=== PATIENT | male | born 1940 | race Caucasian/White ===

== ENCOUNTER 2021-06-25 13:44 | Day surgery (SDC) | payer OTHER, BC ==
--- NOTE | 2021-06-22 16:59 | RAD REPORT ---
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 Lungs: No evidence of edema or pneumonia. Pleural: No significant pleural effusions or pneumothorax. Cardiac: The heart size is within normal limits. Bones: No acute fractures. Other: IMPRESSION: No acute cardiopulmonary disease.
[2021-06-22 17:20] LABS: Protime INR 0.96
[2021-06-25] MEDS ORDERED: NA CHLORIDE 0.9% 500 ML ONE (14:23)
[2021-06-25 15:56] VITALS: TEMP 98.3
[2021-06-25] MEDS ORDERED: MIDAZOLAM HCL 2 MG/2 ML INJ ONE (16:38)
[2021-06-25] MEDS ORDERED: FENTANYL CITR 100 MCG/2 ML ONE (16:39)
[2021-06-25] MEDS ORDERED: VERAPAMIL HCL 10 MG/4 ML VIAL IV ONE (16:39)
[2021-06-25] MEDS ORDERED: HEPARIN 5000 UNIT/ML 1 ML VIAL ONE (16:40)
[2021-06-25] MEDS ORDERED: NITROGLYCERIN 100 MCG/ML SYR (for cath lab use only) IV ONE (16:40)
[2021-06-25] MEDS ORDERED: ATROPINE SULF 1 MG/10 ML SYR IV ONE (16:40)
[2021-06-25] MEDS ORDERED: HEPA 1000U/500MLS 2,000 UNIT/1,000 ML BAG IV ONE (16:41)
[2021-06-25] MEDS ORDERED: LIDOCAINE 1% 20 ML MDV ONE (16:43)
[2021-06-25] MEDS ORDERED: HYDRALAZINE HCL 20 MG/ML VIAL ONE (17:09)
[2021-06-25] MEDS ORDERED: CLOPIDOGREL 75 MG TABLET ONE (17:20)
[2021-06-25] MEDS ORDERED: ASPIRIN 325 MG TAB ONE (17:20)
[2021-06-25] MEDS ORDERED: METOPROLOL TARTRATE 5 MG/5 ML INJ IV ONE (17:30)
--- NOTE | 2021-06-25 19:43 | OP ---
Date of Procedure: 06/25/2021 Surgeon: MIGUEL VALENTINE Procedures Performed: 1.Selective coronary angiogram. 2.PCI of severe mid LAD stenosis using 3.5 x 16 mm Synergy drug-eluting stent. Access: Right radial artery 6-Stateless closed with TR band. Complications: None. Bleeding: Less than 10 mL. Description Of Procedure: After risks, benefits, and alternatives were explained, the patient agreed to the procedure and signed informed consent. The patient was brought into the cardiac catheterizat ion laboratory, prepped and draped in usual sterile fashion. Then, we accessed right radial artery u sellpoints pediatric micropuncture kit, placed a 6-Stateless Slender sheath, and then took a 5-Stateless [place] 4. 0 catheter into the aortic root, engaged the left main and right coronary artery and took standard vi ews. Intervention Details: We gave systemic heparin to assure ACT level above 250, loaded with 300 mg of Plavix and 325 mg aspirin. Then, I took a 6-Stateless XB3.5 left guide into the aortic root, engaged le ft main, took short Run-Through wire into the left main and then into the LAD placed the wire distall y. Then, we used a 3.5 x 12 mm Compliant balloon to pre-dilate the lesion. Subsequently, I placed a 3.5 x 16 mm Synergy drug-eluting stent with good expansion and 0% residual stenosis and LADY-3 flow at the end of procedure. I then removed the wire. Angiogram was satisfactory. I removed the cathet er and sheath, placed TR band with good hemostasis. Indication For Procedure: Unstable angina. Findings: 1.Left main; large and normal. 2.LAD; proximal to mid diffuse 40 to 50% stenosis, but with good flow. Then, the diagonal branch macias s an ostial 30% to 40% stenosis. In mid LAD, there were multiple focal lesions ranging between 30% a nd 40%. Then, diagonal 2 branch comes off with an ostium to proximal 60% to 70% stenosis. Mid LAD h as a focal 80% stenosis, status post successful PCI as above. The rest of the LAD looks normal. 3.Left circumflex; large and codominant, has proximal diffuse 20% to 30% and then mid RCA has patent large stent. No ISR. 4.RCA; large vessel and codominant. 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 Conclusion: 1.Severe mid LAD stenosis and status post successful PCI as above. 2.Moderate coronary artery disease elsewhere. Plan: Aspirin, Plavix, and high-dose statin and medical management. Follow up with me in my office in 2-3 weeks. SR/MODL Voice ID: [id number] Report ID: [id number]
[2021-06-25 20:08] VITALS: O2SAT 96
[2021-06-25 21:08] VITALS: BP 161/77
== END 2021-06-25 21:09 | disposition home or self-care (01) ==
LOC: CCL 13:44
PROVIDERS: ATTEND Internal Medicine
DX: I25.110 Atherosclerotic heart disease of native coronary artery with unstable angina pectoris (principal); I65.23 Occlusion and stenosis of bilateral carotid arteries; I10 Essential (primary) hypertension; E78.5 Hyperlipidemia, unspecified; E11.9 Type 2 diabetes mellitus without complications; Z95.5 Presence of coronary angioplasty implant and graft; Z20.822 Contact with and (suspected) exposure to COVID-19; Z82.49 Family history of ischemic heart disease and other diseases of the circulatory system
CPT/HCPCS: 36415; 85610; 82947; 85347; 85730; 71046; 93454; U0003; C1893; C1725; C9600; J0360; J1644 ×2; J2250; J3010; J7040

== ENCOUNTER 2021-07-16 06:53 | Day surgery (SDC) | payer OTHER, BC ==
[2021-07-13 16:14] LABS: Absolute Lymphocytes (CBC) 2.1 K/uL (0.7-4.9); Hematocrit 41.1 % (39.6-49.0); Lymphocytes % 28.7 % (15.3-44.8); RBC Red Blood Cell Count 4.19 M/uL (4.33-5.43)
[2021-07-13 16:22] LABS: Protime INR 0.95
[2021-07-13 16:29] LABS: Potassium 4.4 mmol/L (3.5-5.1)
[2021-07-16] MEDS ORDERED: MIDAZOLAM HCL 2 MG/2 ML INJ ONE ×2 (07:01→07:37)
[2021-07-16] MEDS ORDERED: FENTANYL CITR 100 MCG/2 ML ONE (07:01)
[2021-07-16] MEDS ORDERED: LIDOCAINE 1% 20 ML MDV ONE (07:01)
[2021-07-16] MEDS ORDERED: NA CHLORIDE 0.9% 500 ML ONE ×2 (07:02)
[2021-07-16] MEDS ORDERED: ATROPINE SULF 1 MG/10 ML SYR IV ONE (07:02)
[2021-07-16] MEDS ORDERED: HEPA 1000U/500MLS 1,000 UNIT/500 ML BAG IV ONE (07:04)
[2021-07-16 07:33] VITALS: TEMP 97.1
[2021-07-16] MEDS ORDERED: ACETAMINOPHEN 325 MG TABLET ONE (10:36)
[2021-07-16] MEDS ORDERED: cloNIDine HCL 0.1 MG TAB PO ONE (11:40)
[2021-07-16 14:58] VITALS: BP 154/63; O2SAT 97
--- NOTE | 2021-07-16 15:00 | OP ---
Date of Procedure: 07/16/2021 Surgeon: Oniel Gabriel MD Director Of Enrollment: Mr. Mosley. The patient will remain in the hospital for 6 hours at bedrest after holding pressure on the right gr oin. I will make arrangements for him to have a CD with him and I will send him to [facility] for carotid endarterectomy. Procedure: Bilateral selective carotid angiograms. Indication: Cerebrovascular disease and abnormal carotid Doppler. 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 Given Versed and fentanyl for sedation. A 6-Nauruan ruiz th introduced in the right common femoral artery successfully using the Seldinger technique and 10 cc Xylocaine. A JR4 catheter 6-Nauruan was used to cannulate selectively the right carotid and then the left carotid. Angiography showed 50% right ICA, 80% left ICA. He had a normal external carotid and normal common carotid bilaterally. The patient tolerated the procedure well. There were no complic ations. Blood Loss: 5 cc. Anesthesia: Total conscious sedation was 30 minutes. Postoperative Diagnosis: Severe cerebrovascular disease. Plan: For left carotid endarterectomy. BIBIANA/LISA Voice ID: [id number] Report ID: [id number]
== END 2021-07-16 14:05 | disposition home or self-care (01) ==
LOC: CCL 06:53
DX: I65.23 Occlusion and stenosis of bilateral carotid arteries (principal); I25.10 Atherosclerotic heart disease of native coronary artery without angina pectoris; I10 Essential (primary) hypertension; E78.5 Hyperlipidemia, unspecified; E11.9 Type 2 diabetes mellitus without complications; Z20.822 Contact with and (suspected) exposure to COVID-19
CPT/HCPCS: 93005; 85025; 80048; 36415; 85610; 82947; 85730; 36222; U0003; C1893; J2250; J3010; J7040 ×2; J1644

== ENCOUNTER 2021-09-24 07:45 | Day surgery (SDC) | payer OTHER, BC ==
[2021-09-19 11:49] LABS: Absolute Lymphocytes (CBC) 1.9 K/uL (0.7-4.9); Hematocrit 42.4 % (39.6-49.0); Lymphocytes % 28.4 % (15.3-44.8); MPV 8.7 fL (7.6-11.3); RBC Red Blood Cell Count 4.32 M/uL (4.33-5.43)
[2021-09-19 12:03] LABS: Potassium 4.3 mmol/L (3.5-5.1)
[2021-09-24] MEDS ORDERED: NA CHLORIDE 0.9% 1,000 ML ONE ×2 (08:05→10:26)
[2021-09-24] MEDS ORDERED: FENTANYL CITR 100 MCG/2 ML ONE (08:18)
[2021-09-24] MEDS ORDERED: propofoL 200 MG/20 ML VIAL IV ONE (08:18)
[2021-09-24] MEDS ORDERED: ROCURONIUM 50 MG/5 ML VIAL IV ONE (08:19)
[2021-09-24] MEDS ORDERED: LIDOCAINE 2% MPF 5 ML VIAL ONE (08:19)
[2021-09-24] MEDS ORDERED: ONDANSETRON 4 MG/2 ML VIAL ONE ×2 (08:20→11:11)
[2021-09-24] MEDS ORDERED: CEFAZOLIN SODIUM 1 GM/VIAL ONE (08:28)
[2021-09-24] MEDS ORDERED: HYDRALAZINE HCL 20 MG/ML VIAL IV ONE (08:36)
[2021-09-24] MEDS ORDERED: HYDRALAZINE HCL 20 MG/ML VIAL ONE ×2 (08:36→10:15)
[2021-09-24] MEDS ORDERED: ACETAMINOPHEN 500 MG TAB PO ONE (08:40)
[2021-09-24] MEDS ORDERED: ACETAMINOPHEN 500 MG TAB ONE (08:42)
[2021-09-24] MEDS ORDERED: GLYCOPYRROLATE 0.2 MG/ML SYR ONE ×2 (09:30→10:06)
[2021-09-24] MEDS ORDERED: dexAMETHasone 4 MG/ML VIAL ONE (09:33)
[2021-09-24] MEDS ORDERED: NEOSTIGMINE 1 MG/ML -5 ML ONE (10:06)
--- NOTE | 2021-09-24 10:07 | P.BOP ---
Preoperative diagnosis: bilateral tender inguinal hernias Postoperative diagnosis: same Primary procedure: 1. Laparoscopic repair of Right inguinal hernia with mesh Secondary procedure: 2. Laparoscopic repair of Left inguinal hernia with mesh Estimated blood loss: <10cc Specimen: hernia sac bilateral sac Findings: as above Anesthesia: General Complications: None Transferred to: Recovery Room Condition: Good
[2021-09-24] MEDS ORDERED: LABETALOL 20 MG/4ML SYRINGE IV ONE (10:19)
[2021-09-24] MEDS ORDERED: SUGAMMADEX SODIUM 200 MG/2 ML VIAL IV ONE ×2 (10:20→12:56)
[2021-09-24] MEDS: HYDROMORPHONE HCL 1 MG/ML INJ ONE ×2 (11:11→11:23)
[2021-09-24 12:22] VITALS: TEMP 97; O2SAT 96
[2021-09-24 14:35] VITALS: BP 155/92
--- NOTE | 2021-09-24 23:18 | OP ---
Date of Procedure: 09/24/2021 Surgeon: Glen Carvajal MD Preoperative Diagnosis: Bilateral tender inguinal hernias. Postoperative Diagnosis: Bilateral tender inguinal hernias. Procedure: 1.Laparoscopic repair of right inguinal hernia with mesh. 2.Laparoscopic repair of left inguinal hernia with mesh. Estimated Blood Loss: Less than 10 cc. Specimen: Hernia sac, bilateral sacs. Findings: Direct and indirect hernias bilaterally. Anesthesia: General plus local. Complications: None. Indications: This is a case of an 81-year-old patient who comes to us with bilateral inguinal hernia s and tender. Benefits, alternatives, and risks of repair were fully explained which include, but no t limited to infection, bleeding, damage to adjacent structures, anesthesia complication, recurrence, chronic pain, chronic numbness, LA, and even . He also understands this may not relieve any sy mptoms. He might need more than one surgical intervention. He understood. He also understands that we might be using mesh in that region. Mesh pros and cons were discussed with the patient. All the questions were answered to his satisfaction. He did consent for surgery and the mesh. Patient brou ght to the operating room, placed supine position. Anesthesia was done without complication. Abdomi nal area was prepped and draped in a sterile fashion. The patient was placed in Trendelenburg positi on. An incision was made in the area of the umbilical region. Incision was carried down until we fi nd the anterior rectus sheath on the right side. This was opened, muscle retracted laterally to expo se the posterior rectus sheath. The extraperitoneal space was gently developed with the help of blun t dissection and a balloon tipped catheter, this was the pacemaker brand. The balloon was directed t owards the pubis symphysis, inflated under direct visualization with the laparoscope on it and then t he balloon was deflated and removed and the area was insufflated. Under direct visualization with th e camera, a 5 mm trocar was placed just above the pubis symphysis. Another one between the first and the second one. The preperitoneal space was further developed by exposing the inferior epigastric v essels keeping them anterior. Tex ligament was dissected laterally to the junction with the iliac veins. The dissection was continued inferiorly to the iliopubic tract avoiding damage to the femora l branch of the genitofemoral nerve and lateral femoral cutaneous nerve. The cord structure was care fully skeletonized. We have 2 hernias identified. The first hernia was identified on the right side . We have a component of direct and indirect. The spermatic cord structures were carefully skeleton ized. The hernia sac was reduced back into the peritoneal cavity. Then we noticed the pa tient also to have indirect hernia. That the hernia was addressed by first removing the tissue that was trapped in that region and incarcerated. Once this was reduced, we proceeded to then ligate the hernia sac. Then we went to the opposite side. We have dissection and findings similar to the right side. Once again, direct hernia was reduced. The hernia sac is ligated and also an indirect hernia that the hernia sac was reduced into the abdominal cavity. Once we have those identified, we procee ded to introduce a 3D mesh medium size, first on the right side through the trocar site aligned with the spaces to cover direct and indirect spaces. The mesh was secured in place with SorbaFix lateral and superior to the iliopubic tract and inferior and medial to the Tex ligament. We ensured hemos tasis in that area. After that, we proceeded then to locate the mesh exactly the same place as the r ight side, covering the same places and secured in place using same technique and same location of hi s SorbaFix. After ensuring hemostasis, we proceeded there under direct visualization holding the mes h in place as we evacuated the air from that area. The trocars were removed. Anterior rectus sheath was closed with a #1 Vicryl and subcutaneous closed with 3-0 chromic and the skin in a subcuticular fashion with 3-0 chromic and Steri-Strips on top. Sponge count and instrument counts correct at the end of the case. At the end of the case, testicles were in the scrotum. Patient sent to recovery in stable condition. Disposition: Home. Activity: As tolerated. No heavy lifting. Follow up in my office in 1 week. Call for an appointme nt at [phone]. Keep area dry for 48 hours, then may shower. Keep Steri-Strip intact. Cold germain s to the bilateral inguinal regions for the next 24 hours. Medications: Include Tylenol No.3 q.4h p.r.n. pain and Bactrim DS p.o. b.i.d. Condition: Stable. HM/MODL Voice ID: [id number] Report ID: [id number]
== END 2021-09-24 14:20 | disposition home or self-care (01) ==
LOC: OR 07:45
PROVIDERS: ATTEND Surgery
PROC: 0YUA4JZ Supplement Bilateral Inguinal Region with Synthetic Substitute, Percutaneous Endoscopic Approach (ICD-10-PCS; principal; 2021-09-24 09:00)
DX: K40.20 Bilateral inguinal hernia, without obstruction or gangrene, not specified as recurrent (principal); Z20.822 Contact with and (suspected) exposure to COVID-19
CPT/HCPCS: 93005; 85025; 80048; 36415; 82947 ×2; 88302; 49650; U0002; J0360 ×3; J2704; J1100; J3010; J1170; J2710; J7030 ×2; J2405 ×2; J0690

== ENCOUNTER 2024-06-21 07:57 | Emergency (ER) | payer OTHER, BC ==
[2024-06-21 08:46] LABS: Absolute Eosinophils 0.1 K/uL (0-0.5); Absolute Lymphocytes (CBC) 1.6 K/uL (0.7-4.9); Absolute Monocytes 0.5 K/uL (0.1-1.3); Absolute Neutrophil 4.7 K/uL (1.8-8.0); Basophils % 0.4 % (0-1.3); Eosinophils % 1.6 % (0-4.4); Hematocrit 39.1 % (39.6-49.0); Lymphocytes % 22.7 % (15.3-44.8); MCH 32.9 pg (27.0-35.0); MCHC 33.2 g/dL (32.0-36.0); MCV 98.9 fL (80-100); MPV 8.5 fL (7.6-11.3); Neutrophils % 68.3 % (41.7-73.7); Nucleated Red Blood Cells % 0.1 % (0-0); Platelets 212 thou/uL (152-406); RBC Red Blood Cell Count 3.95 M/uL (4.33-5.43); Red Cell Distribution Width 12.8 % (12.1-15.2)
[2024-06-21 09:05] LABS: SARS-CoV-2 Antigen CONTROL BLUE LINE VIS/BG OK; SARS-CoV-2 Antigen Rapid Res Negative (Negative)
[2024-06-21 09:07] LABS: Albumin 3.6 g/dL (3.4-5.0); Anion Gap 9.1 mEq/L (5.0-15.0); Bilirubin Direct 0.3 mg/dL (0-0.2); Bilirubin Indirect, Calculated 0.6 mg/dL (0.2-0.8); Bilirubin Total 0.9 mg/dL (0.2-1.0); Globulin 3.6 g/dL (2.3-3.5); Magnesium 1.6 mg/dL (1.6-2.4); Potassium 4.1 mEq/L (3.5-5.1); Protein, Total 7.2 g/dL (6.4-8.2); Troponin High Sensitivity 11.2 pg/mL (<58.9)
--- NOTE | 2024-06-21 09:12 | RAD REPORT ---
EXAMINATION: ONE VIEW CHEST XR CLINICAL INDICATION: Male, 84 years old.,weakness TECHNIQUE: Frontal chest projection is submitted. Examination is limited by patient positioning and t echnique. COMPARISON: 09/27/2021 and 06/22/2021 FINDINGS: The lungs are well inflated and clear. No pneumothorax or sizable effusion. The heart is normal in s ize. Mediastinal contours are unremarkable. IMPRESSION: No acute intrathoracic abnormalities.
[2024-06-21] MEDS ORDERED: NA CHLORIDE 0.9% 1,000 ML ONE (09:40)
[2024-06-21 10:19] LABS: Specific Gravity 1.015 (1.005-1.030); Sqamous Epithelial None Seen /HPF (None Seen); Urine Bacteria None Seen /HPF (<20); Urine Bilirubin NEGATIVE (Negative); Urine Blood Negative (Negative); Urine Clarity Clear (Clear); Urine Color Colorless (Yellow); Urine Culture Reflex Order NOT NEEDED; Urine Glucose NEGATIVE (Negative); Urine Ketones NEGATIVE (Negative); Urine Micro Reflex YN NO BILL MICROSCOPIC; Urine Mucus Slight /HPF (None Seen); Urine Nitrite NEGATIVE (Negative); Urine Protein NEGATIVE (Negative); Urine RBC <5 /HPF (None Seen); Urine Urobilinogen Normal (Normal); Urine WBC <5 /HPF (<5)
--- NOTE | 2024-06-21 10:24 | ER ---
Nurse's Notes [facility] Name: Luis Auguste Age: 84 yrs Sex: Male : 1940 Arrival Date: 06/21/2024 Time: 07:57 Bed 7 Private MD: Diagnosis: Dehydration Presentation: 06/21 08:12 Chief complaint: Patient states: shakiness and fatigue that began an hour ago while ss visiting who is in the hospital. Pt believe his blood sugar may be low. Coronavirus screen: Client denies travel out of the [place] in the last 14 days. Ebola Screen: Patient denies exposure to infectious person. Patient denies travel to an Ebola-affected area in the 21 days before illness onset. Initial Sepsis Screen: Does the patient meet any 2 criteria? No. Patient's initial sepsis screen is negative. Does the patient have a suspected source of infection? No. Patient's initial sepsis screen is negative. Risk Assessment: Do you want to hurt yourself or someone else? Patient reports no desire to harm self or others. Onset of symptoms was June 21, 2024. 08:12 Method Of Arrival: Ambulatory ss 08:12 Acuity: JUSTIN 3 ss Historical: - Allergies: 08:14 No Known Allergies; ss - Home Meds: 08:14 clopidogrel 75 mg oral tablet 1 tab daily [Active]; Metformin Oral [Active]; ss 08:47 amlodipine 10 mg oral tablet [Active]; triamterene-hydrochlorothiazid 37.5-25 mg Oral hb tablet [Active]; - PMHx: 08:14 Diabetes - NIDDM; High Cholesterol; Hypertensive disorder; Myocardial infarction; CVA ss (L sided weakness) (Myocardial infarction); - Immunization history:: Adult Immunizations up to date. - Infectious Disease History:: Denies. - Social history:: Smoking status: Patient denies any tobacco usage or history of. Screenin:25 [facility] ED Fall Risk Assessment (Adult) History of falling in the last 3 months, ld1 including since admission No falls in past 3 months (0 pts) Confusion or Disorientation No (0 pts) Intoxicated or Sedated No (0 pts) Impaired Gait No (0 pts) Mobility Assist Device Used No (0 pt) Altered Elimination No (0 pt) Score/Fall Risk Level 0 - 2 = Low Risk Oriented to surroundings, Maintained a safe environment, Educated pt \T\ family on fall prevention, incl call for assistance when getting out of bed, Assessed \T\ reinforced patient's understanding of fall precautions, Provided non-skid footwear, Hourly rounding (assess needs \T\ fall precautionary measures) done, Used ambulatory aids as needed (educated on \T\ assisted with), Used gait belt as appropriate. Abuse screen: Denies threats or abuse. Denies injuries from another. Nutritional screening: No deficits noted. Tuberculosis screening: No symptoms or risk factors identified. Assessment: 08:25 General: Appears in no apparent distress. comfortable, Behavior is calm, cooperative, ld1 appropriate for age. Pain: Denies pain. Neuro: Level of Consciousness is awake, alert, obeys commands, Oriented to person, place, time, situation. Cardiovascular: Capillary refill < 3 seconds Patient's skin is warm and dry. Respiratory: Airway is patent Respiratory effort is even, unlabored. GI: Abdomen is flat, non-distended. : No signs and/or symptoms were reported regarding the genitourinary system. EENT: No signs and/or symptoms were reported regarding the EENT system. Derm: No signs and/or symptoms reported regarding the dermatologic system. Musculoskeletal: No signs and/or symptoms reported regarding the musculoskeletal system. 10:31 Reassessment: Discharge pending fluids. ld1 10:54 Reassessment: Patient appears in no apparent distress at this time. No changes from ld1 previously documented assessment. Patient and/or family updated on plan of care and expected duration. Pain level reassessed. Vital Signs: 08:12 BP 166 / 67; Pulse 67; Resp 16; Temp 97.6; Pulse Ox 98% on R/A; Weight 74.84 kg; Height ss 5 ft. 9 in. ; Pain 0/10; 08:25 BP 144 / 70; Pulse 57; Resp 18; Pulse Ox 97% on R/A; ld1 09:42 Pulse 75; Resp 18; Pulse Ox 95% ; ld1 10:31 Pulse 58; Resp 18; Pulse Ox 99% on R/A; ld1 10:54 BP 147 / 74; Pulse 68; Resp 18; Pulse Ox 99% on R/A; ld1 08:12 Body Mass Index 24.37 (74.84 kg, 175.26 cm) ss 08:12 Pain Scale: Adult ss ED Course: 08:01 Patient arrived in ED. mr 08:03 Venita Graves PA-C is PSYCHIATRICP. sb4 08:03 Al Escobedo MD is Attending Physician. sb4 08:14 Triage completed. ss 08:14 Arm band placed on right wrist. ss 08:15 Liv Savage, RN is Primary Nurse. ld1 08:25 Patient has correct armband on for positive identification. Placed in gown. Bed in low ld1 position. Call light in reach. Side rails up X2. ekg monitor tech on. Pulse ox on. NIBP on. Door closed. Noise minimized. Warm blanket given. 08:25 No provider procedures requiring assistance completed. ld1 08:40 Basic Metabolic Panel Sent. kb4 08:40 CBC with Diff Sent. kb4 08:40 LFT's Sent. kb4 08:40 Magnesium Sent. kb4 08:40 Troponin HS Sent. kb4 08:40 Initial lab(s) drawn, by me, sent to lab. EKG done, by ED staff, reviewed by Venita Graves PA-C. Inserted saline lock: 20 gauge in right antecubital area, using aseptic technique. Blood collected. Flushed with 10 mL NS. 08:46 XRAY Chest (1 view) In Process Unspecified. EDMS 10:55 IV discontinued, intact, bleeding controlled, No redness/swelling at site. ld1 Administered Medications: 09:42 Drug: NS 0.9% IV 1000 ml IV at 1 bolus Per protocol; to be given as a bolus over 60 ld1 minutes Route: IV; Rate: 1 bolus; Site: right antecubital; 10:55 Follow up: Response: No adverse reaction; IV Status: Completed infusion; IV Intake: ld1 1000ml Medication: 08:25 VIS not applicable for this client. ld1 Intake: 10:55 IV: 1000ml; Total: 1000ml. ld1 Outcome: 10:23 Discharge ordered by . sb4 10:55 Discharged to home ambulatory, ld1 10:55 Condition: stable 10:55 Discharge instructions given to patient, Instructed on discharge instructions, follow up and referral plans. Demonstrated understanding of instructions, follow-up care, 10:55 Patient left the ED. ld1 Signatures: Dispatcher [employer] EDMS Rachel Whitley, Reg Reg mr Yaz Donahue, RN RN ss Nellie Estrada RN RN Liv Savage RN RN ld1 Venita Graves, ZAIN PITTMAN sb4 Ioana Coe4 Corrections: (The following items were deleted from the chart) 08:49 08:14 Home Meds: 2 unknown blood pressure medications; hb
--- NOTE | 2024-06-21 10:24 | EDPHYS ---
Physician Documentation [facility] Name: Luis Auguste Age: 84 yrs Sex: Male : 1940 Arrival Date: 06/21/2024 Time: 07:57 Bed 7 Private MD: ED Physician Al Escobedo HPI: 06/21 08:14 This 84 yrs old Male presents to ER via Ambulatory with complaints of weakness. sb4 08:14 Patient reports generalized weakness/shakiness x 1 hour. States that he thought his sb4 blood sugar might have been low because he has not eaten since last night. He is a non insulin dependent type II diabetic. He was upstairs visiting his who is admitted for a UTI. Staff gave him a fruit cup and he states he is not feeling better. Denies any history of any hypoglycemic episodes. Additionally reports a history of hypertension and CVA in which she is on antihypertensives and Plavix. He denies any recent changes in his medication. He denies any upper respiratory infections. Denies any dark tarry stools. No abdominal pain, chest pain, or shortness of breath. Historical: - Allergies: 08:14 No Known Allergies; ss - Home Meds: 08:14 clopidogrel 75 mg oral tablet 1 tab daily [Active]; Metformin Oral [Active]; ss 08:47 amlodipine 10 mg oral tablet [Active]; triamterene-hydrochlorothiazid 37.5-25 mg Oral hb tablet [Active]; - PMHx: 08:14 Diabetes - NIDDM; High Cholesterol; Hypertensive disorder; Myocardial infarction; CVA ss (L sided weakness) (Myocardial infarction); - Immunization history:: Adult Immunizations up to date. - Infectious Disease History:: Denies. - Social history:: Smoking status: Patient denies any tobacco usage or history of. ROS: 08:16 Cardiovascular: Negative for chest pain, palpitations, and edema, Respiratory: Negative sb4 for shortness of breath, cough, wheezing, and pleuritic chest pain, Abdomen/GI: Negative for abdominal pain, nausea, vomiting, diarrhea, and constipation, 08:16 Neuro: Positive for weakness, 08:16 All other systems are negative, Exam: 08:16 Head/Face: Normocephalic, atraumatic. Eyes: Extra-ocular motions intact. Periorbital sb4 areas with no swelling, redness, or edema. ENT: Mucous membranes moist. Cardiovascular: Regular rate and rhythm with a normal S1 and S2. Respiratory: No increased work of breathing, no retractions or nasal flaring. Abdomen/GI: Soft, non-tender, no distension. Skin: Warm, dry with normal turgor. Normal color with no rashes, no lesions, and no evidence of cellulitis. 08:16 Constitutional: The patient appears in no acute distress, alert, awake, Vital Signs: 08:12 BP 166 / 67; Pulse 67; Resp 16; Temp 97.6; Pulse Ox 98% on R/A; Weight 74.84 kg; Height ss 5 ft. 9 in. ; Pain 0/10; 08:25 BP 144 / 70; Pulse 57; Resp 18; Pulse Ox 97% on R/A; ld1 09:42 Pulse 75; Resp 18; Pulse Ox 95% ; ld1 10:31 Pulse 58; Resp 18; Pulse Ox 99% on R/A; ld1 10:54 BP 147 / 74; Pulse 68; Resp 18; Pulse Ox 99% on R/A; ld1 08:12 Body Mass Index 24.37 (74.84 kg, 175.26 cm) ss 08:12 Pain Scale: Adult ss MDM: 08:03 Medical Screening Exam initiated sb4 09:56 Differential diagnosis: pneumonia UTI, dehydration, anemia, hypoglycemia, hypotension, sb4 viral infection. Data reviewed: vital signs, nurses notes, lab test result(s), EKG, radiologic studies, and as a result, I will discharge patient. Consideration of Admission/Observation Escalation of care including admission/observation considered. Care significantly affected by the following chronic conditions: Diabetes, Hypertension. Counseling: I had a detailed discussion with the patient and/or guardian regarding the historical points, exam findings, and any diagnostic results supporting the discharge/admit diagnosis, the presence of at least one elevated blood pressure reading (>120/80) during this emergency department visit, lab results, radiology results, the need for outpatient follow up, for definitive care, to return to the emergency department if symptoms worsen or persist or if there are any questions or concerns that arise at home. 06/21 08:14 Order name: Basic Metabolic Panel; Complete Time: 09:14 sb4 06/21 08:14 Order name: CBC with Diff; Complete Time: 08:47 sb4 06/21 08:14 Order name: LFT's; Complete Time: 09:14 sb4 06/21 08:14 Order name: Magnesium; Complete Time: 09:14 sb4 06/21 08:14 Order name: Troponin HS; Complete Time: 09:14 sb4 06/21 08:25 Order name: UAM; Complete Time: 10:20 sb4 06/21 08:25 Order name: Glucose, Ancillary Testing; Complete Time: 08:29 EDMS 06/21 08:37 Order name: SARS RAPID; Complete Time: 09:14 sb4 06/21 08:37 Order name: Flu; Complete Time: 09:14 sb4 06/21 10:43 Order name: Glucose, Ancillary Testing; Complete Time: 10:43 EDMS 06/21 08:14 Order name: XRAY Chest (1 view); Complete Time: 09:14 sb4 06/21 08:14 Order name: EKG; Complete Time: 08:14 sb4 06/21 08:14 Order name: Cardiac monitoring; Complete Time: 08:40 sb4 06/21 08:14 Order name: EKG - Nurse/Tech; Complete Time: 08:40 sb4 06/21 08:14 Order name: IV Saline Lock; Complete Time: 08:40 sb4 06/21 08:14 Order name: Labs collected and sent; Complete Time: 08:40 sb4 06/21 08:14 Order name: O2 Per Protocol; Complete Time: 08:15 sb4 06/21 08:14 Order name: O2 Sat Monitoring; Complete Time: 08:15 sb4 06/21 10:26 Order name: Accucheck; Complete Time: 10:31 sb4 EC:34 Rate is 56 beats/min. Rhythm is regular, Sinus bradycardia with Right bundle branch sb4 block. KS interval is normal at 162 msec. QRS interval is normal at 158 msec. QT interval is normal at 472 msec. No Q waves. T waves are Normal. No ST changes noted. Clinical impression: No evidence of ischemia. Interpreted by me. Reviewed by me. Administered Medications: 09:42 Drug: NS 0.9% IV 1000 ml IV at 1 bolus Per protocol; to be given as a bolus over 60 ld1 minutes Route: IV; Rate: 1 bolus; Site: right antecubital; 10:55 Follow up: Response: No adverse reaction; IV Status: Completed infusion; IV Intake: ld1 1000ml Disposition: 13:06 I was immediately available for consultation during this patient's visit. I did not ec2 personally see the patient or discuss the patient with the JOSE. . Disposition Summary: 06/21/24 10:23 Discharge Ordered Notes: Location: Home sb4 Problem: new sb4 Symptoms: have improved sb4 Condition: Stable sb4 Diagnosis - Dehydration sb4 Followup: sb4 - With: Emergency Department - When: As needed - Reason: Trouble breathing, Worsening of condition Discharge Instructions: - Discharge Summary Sheet sb4 - Dehydration, Adult sb4 Forms: - Patient Portal Instructions sb4 - Leadership Thank You Letter sb4 Signatures: Dispatcher [employer] Yaz Everett RN RN Nellie Estrada RN RN Liv Savage RN RN ld1 Venita Graves, PAHeidiC PAJimmy sb4 Al Escobedo MD MD ec2 Corrections: (The following items were deleted from the chart) 08:49 08:14 Home Meds: 2 unknown blood pressure medications; hb
[2024-06-21 11:10] VITALS: TEMP 97.6
[2024-06-21 11:22] VITALS: O2SAT 99
[2024-06-21 11:23] VITALS: BP 147/74
--- NOTE | 2024-06-28 11:10 | EKG ---
Test Date: 2024-06-21 Test Time: 08:22:40 Meeting/Event Planner: KALINA MEASUREMENT RESULTS: Intervals: Rate: 56 DC: 162 QRSD: 158 QT: 472 QTc: 455 [place]: P: 64 DC: 162 QRS: 35 T: 47 INTERPRETIVE STATEMENTS: Sinus bradycardia Right bundle branch block Abnormal ECG Compared to ECG 06/21/2024 08:22:08 No significant changes Electronically Signed On 06-28-24 11:00:26 TELEPHONE RECORDER by Hong Parker
--- NOTE | 2024-06-28 11:10 | EKG ---
Test Date: 2024-06-21 Test Time: 08:22:08 Melter Operator: KALINA MEASUREMENT RESULTS: Intervals: Rate: 56 MI: 166 QRSD: 152 QT: 454 QTc: 438 [place]: P: 56 MI: 166 QRS: 38 T: 53 INTERPRETIVE STATEMENTS: Sinus bradycardia Right bundle branch block Abnormal ECG Compared to ECG 09/27/2021 12:21:08 Right bundle-branch block now present Electronically Signed On 06-28-24 11:00:28 DYE HOUSE SUPERVISOR by Hong Parker
== END 2024-06-21 10:55 | disposition home or self-care (01) ==
LOC: ER 07:57
DX: E86.0 Dehydration (principal); R53.1 Weakness; E11.9 Type 2 diabetes mellitus without complications; E78.00 Pure hypercholesterolemia, unspecified; I10 Essential (primary) hypertension; I25.2 Old myocardial infarction; I69.354 Hemiplegia and hemiparesis following cerebral infarction affecting left non-dominant side; Z11.52 Encounter for screening for COVID-19
CPT/HCPCS: 93005 ×2; 85025; 81001; 80048; 36415; 83735; 82947 ×2; 80076; 84484; 87804 ×2; 71045; 96360; 99285; 87811; J7030